=== PATIENT | female | born 2000 | race Caucasian/White ===

== ENCOUNTER 2021-10-26 09:30 | Observation (INO) ==
[2021-10-26 10:24] LABS: Basophils # (auto) 0.02 K/uL (0-0.2); Basophils % (auto) 0.1 %; Hematocrit (blood only) 43.7 % (37-47); Hemoglobin 14.6 g/dL (12.0-16.0); Immature Granulocytes % (auto) 0.4 %; Lymphocytes # (auto) 1.16 K/uL (1.2-3.4); Lymphocytes % (auto) 5.1 %; Mean Corpuscular Hemoglobin 31.4 pg (25-34); Mean Corpuscular Hgb Conc 33.4 g/dL (32-36); Mean Platelet Volume 10.5 fL (7.4-10.4); Monocytes # (auto) 1.69 K/uL (0.11-0.59); Monocytes % (auto) 7.5 %; Neutrophils % (auto) 86.9 %; Platelet Count 258 K/uL (130-400); RDW Coefficient of Variation 12.6 % (11.5-14.5); RDW Standard Deviation 42.9 fL (36.4-46.3); Red Blood Count 4.65 M/uL (4.2-5.4); White Blood Count 22.57 K/uL (4.8-10.8)
[2021-10-26 10:32] LABS: Albumin Globulin Ratio 1.7 (0.9-2); Albumin Level 4.8 gm/dl (3.4-5.0); BUN Creatinine Ratio 22.7 (10-20); Bilirubin,Total 0.9 mg/dl (0.2-1.0); Calcium 9.8 mg/dl (8.5-10.1); Creatinine Clr Calc Pharmacy 137.9 ml/min; Est GFR (African American) 146.4 ml/min; Est GFR (Non-African American) 126.3 ml/min; Globulin 2.8 gm/dl (2.5-4.0); Total Protein 7.6 gm/dl (6.0-8.3)
[2021-10-26] MEDS ORDERED: ONDANSETRON INJ 2 MG/ML 2 ML VIAL IV STA (10:57)
[2021-10-26] MEDS ORDERED: SODIUM CHLORIDE 0.9% 1000ML 1,000 ML IV SCH (10:58)
[2021-10-26 11:01] LABS: Appearance Urine Cloudy (Clear); Bacteria Urine Automated 1+ (Negative); Bilirubin Urine Negative (Negative); Blood Urine Negative (Negative); Color Urine Dark Yellow; Epithelial Cell Urine Auto >30 /lpf (0-5); Glucose Urine UA Negative (Negative); Ketones Urine 1+ (Negative); Leukocyte Esterase Urine Trace (Negative); Nitrite Urine Negative (Negative); Protein Urine Trace (Negative); RBC Urine Automated 0-4 /hpf (0-4); Specific Gravity Urine 1.034 (1.000-1.030); Urobilinogen Urine Negative (Negative)
--- NOTE | 2021-10-26 11:08 | Emergency Department Note ---
History of Present Illness General Chief complaint: Abdominal Pain Stated complaint: LOWR R ABD PAIN, THINKS APPENDICITIS Time Seen by Provider: 10/26/21 10:12 History of Present Illness Maximum Pain Intensity: 6 Patient is an otherwise healthy 21-year-old female who presents emergency de partment for evaluation of abdominal pain and vomiting. Symptoms started yesterday evening, around 1800. She states that she had just eaten some dinner, when she began to feel some crampy diffuse achy abdominal pain, accompanied by nausea. She started vomiting around 2100, threw up about 3 times last night. She subjectively felt feverish, but did not check her temperature with a thermometer. Pain persisted overnight. She woke up with discomfort around 0630 today and vomited again. The pain is now localized more to the right lower quadrant. She denies any urinary symptoms. No diarrhea. Last menstrual period was about 4 weeks ago, she is due any day now for her menses. She is sexually active using condoms, thinks is unlikely. She spoke with [facility] and they referred her to the ED for evaluation. She notes that she ate some pizza last couple of days, and questions whether she could have "food poisoning." Otherwise her boyfriend was eating foods similar to her in the prior days and he is not ill. Home Medications Medication Instructions Recorded Confirmed Type loratadine 10 mg disintegrating 10 mg PO DAILY PRN 10/26/21 10/26/21 History tablet (Allergy Relief (loratadine)) oxycodone-acetaminophen 5 mg-325 1 - 2 tab PO .q4-6h PRN #10 tab 10/26/21 Rx mg tablet (Percocet) Allergies Allergy/AdvReac Type Severity Reaction Status Date / Time pollen extracts Allergy Intermediate ITCHY Verified 10/26/21 14:58 EYES, SNEEZING, CONGESTION Past Med/Surg History Medical History Environmental and seasonal allergies Surgical History No history of previous surgery Social History Smoking Status: Never smoker Preferred Language: Maltese Current Living Situation Comment: [employer] student from [place], [place], lives in the dorm Feels Safe at Home: Yes Review of Systems A total of 10 systems reviewed and were otherwise negative Physical Exam Vital Signs Vital Signs - 24 hr 10/26/21 09:34 10/26/21 11:08 10/26/21 12:02 Temperature 36.7 C Temperature Source Temporal Artery Scan Pulse Rate 136 H Pulse Rate [Apical] Pulse Rate [Finger] 89 101 H Pulse Rhythm [Apical] Pulse Rhythm [Finger] Pulse Strength [Apical] Pulse Strength [Finger] Respiratory Rate 14 16 18 Respiratory Effort / Characteristics Respiratory Depth Respiratory Pattern Blood Pressure 118/66 Blood Pressure [Left Arm] 118/76 117/75 Blood Pressure Mean 83 Blood Pressure Mean [Left Arm] 90 89 Blood Pressure Position [Left Arm] Sitting Pulse Oximetry 97 100 100 Oxygen Delivery Method Room Air Room Air Room Air Sepsis Recent Fever Within 48 Hours No Sepsis New/Unexplained Change in Mental Status No Sepsis Action Taken by Nursing No Action Required 10/26/21 13:00 10/26/21 14:40 10/26/21 15:22 Temperature Temperature Source Pulse Rate Pulse Rate [Apical] Pulse Rate [Finger] 85 80 79 Pulse Rhythm [Apical] Pulse Rhythm [Finger] Regular Regular Pulse Strength [Apical] Pulse Strength [Finger] Normal Respiratory Rate 16 16 17 Respiratory Effort / Characteristics Non-Labored Non-Labored Spontaneous Respiratory Depth Normal Normal Respiratory Pattern Blood Pressure Blood Pressure [Left Arm] 121/76 112/66 Blood Pressure Mean Blood Pressure Mean [Left Arm] 91 81 Blood Pressure Position [Left Arm] Lying Pulse Oximetry 99 100 100 Oxygen Delivery Method Room Air Room Air Room Air Sepsis Recent Fever Within 48 Hours Sepsis New/Unexplained Change in Mental Status Sepsis Action Taken by Nursing 10/26/21 15:40 Temperature 36.9 C Temperature Source Oral Pulse Rate Pulse Rate [Apical] 96 H Pulse Rate [Finger] Pulse Rhythm [Apical] Regular Pulse Rhythm [Finger] Pulse Strength [Apical] Normal Pulse Strength [Finger] Respiratory Rate 18 Respiratory Effort / Characteristics Non-Labored Spontaneous Normal for Patient Respiratory Depth Normal Respiratory Pattern Regular Blood Pressure Blood Pressure [Left Arm] 120/74 Blood Pressure Mean Blood Pressure Mean [Left Arm] 89 Blood Pressure Position [Left Arm] Semi-fowlers Pulse Oximetry 100 Oxygen Delivery Method Room Air Sepsis Recent Fever Within 48 Hours Sepsis New/Unexplained Change in Mental Status Sepsis Action Taken by Nursing CONSTITUTIONAL: Patient is a well-appearing 21-year-old female who is awake and alert and laying on the gurney in a semiupright position. She is nontoxic in appearance and afebrile. EYES: Pupils equal, round, reactive to light and accommodation. EOMs intact without nystagmus. Sclera are anicteric. ENT: Tympanic membranes intact, with normal landmarks. External canals are clear. Oral and nasopharynx are clear. Mucous membranes are moist, no lesions, tongue and gums appear normal. CARDIOVASCULAR: Regular rate and rhythm. Peripheral pulses easily palpable. RESPIRATORY: Breath sounds equal and clear to auscultation. ABDOMEN: Bowel sounds are present. Abdomen is soft, scaphoid, tender to percussion over the right lower quadrant and tender to deep palpation in the right lower quadrant with voluntary guarding. INTEGUMENTARY: No lesions or rash, normal skin turgor. LYMPH: No lymphadenopathy. Course Course Patient was seen and assessed as above. Old records are reviewed. Nursing staff had implemented critical pathways prior to my assessment of the patient. She has been made NPO. IV lock was initiated. CBC, CMP, lipase, urinalysis and urine test were collected. Laboratory studies note an elevated white count at 22,500 with left shift and bandemia. Electrolytes and renal functions are normal. Transaminases are not elevated. Lipase minimally elevated at 129. Urine microscopy notes 1+ ketones, trace leukocyte esterase and 10-30 WBCs with Greater Than 30 Epithelial Cells Which Is a Contaminated Sample. 1+ Bacteria Noted. Urine Test Is Negative. After the patient was assessed, I ordered her some IV fluids and some IV Zofran. She was offered medication for discomfort but declined. CT scan of the abdomen and pelvis with IV contrast was ordered. CT scan findings are consistent with acute appendicitis. No free air or abscess. Appendix is retrocecal. There is also a 2.3 cm right adnexal lesion favoring a corpus luteal cyst. CT scan findings were reviewed with the patient. Surgical consult was placed. Patient was reviewed with Julián Crowe PA-C with Dr. Call. Patient is aware that surgical team will be coming to evaluate her. She has been n.p.o. since 1730 last evening. Plan is for surgical intervention later today. Administered Medications Discontinued Medications Sodium Chloride (Nss 1000ml) 1,000 mls @ 999 mls/hr IV .Q1H1M LETY Stop: 10/26/21 11:58 Last Infusion: 10/26/21 12:02 Dose: 0 mls/hr Documented by: [id number] Admin: 10/26/21 11:07 Dose: 999 mls/hr Documented by: [id number] Sodium Chloride (Nss 1000ml) 1,000 mls @ 250 mls/hr IV .Q4H LETY Stop: 11/25/21 10:59 Last Admin: 10/26/21 12:02 Dose: 250 mls/hr Documented by: [id number] Cefoxitin Sodium (Mefoxin) 2,000 mg in 60 mls @ 100 mls/hr IV NOW STA Stop: 10/26/21 13:04 Last Infusion: 10/26/21 13:19 Dose: 0 mls/hr Documented by: [id number] Admin: 10/26/21 12:49 Dose: 100 mls/hr Documented by: [id number] Ioversol (Optiray 320 100ml) 95 ml IV ONCE ONE Stop: 10/26/21 11:42 Last Admin: 10/26/21 11:44 Dose: 95 ml Documented by: [id number] Ondansetron HCl (Ondansetron Inj 2 Mg/Ml 2 Ml Vial) 4 mg IV NOW STA Stop: 10/26/21 10:58 Last Admin: 10/26/21 11:05 Dose: 4 mg Documented by: [id number] Scopolamine (Scopolamine 1 Mg Tdsy) 1 mg TD ONE ONE Stop: 10/26/21 16:01 Last Admin: 10/26/21 16:03 Dose: 1 mg Documented by: [id number] Medical Decision Making Differential Diagnosis Differential diagnoses entertained included UTI, pyelonephritis, kidney stone, , ectopic , ovarian cyst, ovarian torsion, appendicitis, mesenteric adenitis, among others. Medical Records Attestation: I reviewed the patient's medical records. Home Medications Current Medication List: was personally reviewed by me Laboratory Data Attestation: I reviewed the patient's lab results. Result diagrams: 10/26/21 09:50 10/26/21 09:50 Lab Results 10/26/21 10/26/21 10/26/21 Range/Units 09:50 09:50 09:50 WBC 22.57 H (4.8-10.8) K/uL RBC 4.65 (4.2-5.4) M/uL Hgb 14.6 (12.0-16.0) g/dL Hct 43.7 (37-47) % MCV 94.0 (80-100) fL MCH 31.4 (25-34) pg MCHC 33.4 (32-36) g/dL RDW Std Deviation 42.9 (36.4-46.3) fL RDW Coeff of Stewart 12.6 (11.5-14.5) % Plt Count 258 (130-400) K/uL MPV 10.5 H (7.4-10.4) fL Immature Gran % (Auto) 0.4 % Neut % (Auto) 86.9 % Lymph % (Auto) 5.1 % [place] % (Auto) 7.5 % Eos % (Auto) 0.0 % Baso % (Auto) 0.1 % Neut # (Auto) 19.60 H (1.4-6.5) K/uL Lymph # (Auto) 1.16 L (1.2-3.4) K/uL [place] # (Auto) 1.69 H (0.11-0.59) K/uL Eos # (Auto) 0.00 (0-0.5) K/uL Baso # (Auto) 0.02 (0-0.2) K/uL Immature Gran # (Auto) 0.10 H (0.00-0.02) K/uL Sodium 136 (136-145) mmol/L Potassium 4.0 (3.5-5.1) mmol/L Chloride 103 (98-107) mmol/L Carbon Dioxide 25 (21-32) mmol/L Anion Gap 8 (3-11) BUN 15 (6-23) mg/dl Creatinine 0.66 (0.6-1.2) mg/dl Est Cr Clr Drug Dosing 137.9 ml/min Est GFR ( Amer) 146.4 ml/min Est GFR (Non-Af Amer) 126.3 ml/min BUN/Creatinine Ratio 22.7 H (10-20) Glucose 116 H (70-99(Fasting)) mg/dl Calcium 9.8 (8.5-10.1) mg/dl Total Bilirubin 0.9 (0.2-1.0) mg/dl AST 16 (13-39) U/L ALT 11 (7-52) U/L Alkaline Phosphatase 65 (34-104) U/L Total Protein 7.6 (6.0-8.3) gm/dl Albumin 4.8 (3.4-5.0) gm/dl Globulin 2.8 (2.5-4.0) gm/dl Albumin/Globulin Ratio 1.7 (0.9-2) Lipase 129 H (11-82) U/L Urine Color Dark Yellow Urine Appearance Cloudy A (Clear) Urine pH 6.0 (4.5-7.5) Ur Specific [place] 1.034 H (1.000-1.030) Urine Protein Trace H (Negative) Urine Glucose (UA) Negative (Negative) Urine Ketones 1+ H (Negative) Urine Blood Negative (Negative) Urine Nitrite Negative (Negative) Urine Bilirubin Negative (Negative) Urine Urobilinogen Negative (Negative) Ur Leukocyte Esterase Trace H (Negative) Urine WBC (Auto) 10-30 H (0-5) /hpf Urine RBC (Auto) 0-4 (0-4) /hpf U Hyaline Cast (Auto) 10-30 H (0-5) /lpf U Epithel Cells (Auto) >30 H (0-5) /lpf Urine Bacteria (Auto) 1+ H (Negative) Urine Test (Negative) POC Ur Test SARS-CoV-2, RNA, NAAT (NEGATIVE) 10/26/21 10/26/21 10/26/21 Range/Units 09:50 12:45 Unknown WBC (4.8-10.8) K/uL RBC (4.2-5.4) M/uL Hgb (12.0-16.0) g/dL Hct (37-47) % MCV (80-100) fL MCH (25-34) pg MCHC (32-36) g/dL RDW Std Deviation (36.4-46.3) fL RDW Coeff of Stewart (11.5-14.5) % Plt Count (130-400) K/uL MPV (7.4-10.4) fL Immature Gran % (Auto) % Neut % (Auto) % Lymph % (Auto) % [place] % (Auto) % Eos % (Auto) % Baso % (Auto) % Neut # (Auto) (1.4-6.5) K/uL Lymph # (Auto) (1.2-3.4) K/uL [place] # (Auto) (0.11-0.59) K/uL Eos # (Auto) (0-0.5) K/uL Baso # (Auto) (0-0.2) K/uL Immature Gran # (Auto) (0.00-0.02) K/uL Sodium (136-145) mmol/L Potassium (3.5-5.1) mmol/L Chloride (98-107) mmol/L Carbon Dioxide (21-32) mmol/L Anion Gap (3-11) BUN (6-23) mg/dl Creatinine (0.6-1.2) mg/dl Est Cr Clr Drug Dosing ml/min Est GFR ( Amer) ml/min Est GFR (Non-Af Amer) ml/min BUN/Creatinine Ratio (10-20) Glucose (70-99(Fasting)) mg/dl Calcium (8.5-10.1) mg/dl Total Bilirubin (0.2-1.0) mg/dl AST (13-39) U/L ALT (7-52) U/L Alkaline Phosphatase (34-104) U/L Total Protein (6.0-8.3) gm/dl Albumin (3.4-5.0) gm/dl Globulin (2.5-4.0) gm/dl Albumin/Globulin Ratio (0.9-2) Lipase (11-82) U/L Urine Color Urine Appearance (Clear) Urine pH (4.5-7.5) Ur Specific [place] (1.000-1.030) Urine Protein (Negative) Urine Glucose (UA) (Negative) Urine Ketones (Negative) Urine Blood (Negative) Urine Nitrite (Negative) Urine Bilirubin (Negative) Urine Urobilinogen (Negative) Ur Leukocyte Esterase (Negative) Urine WBC (Auto) (0-5) /hpf Urine RBC (Auto) (0-4) /hpf U Hyaline Cast (Auto) (0-5) /lpf U Epithel Cells (Auto) (0-5) /lpf Urine Bacteria (Auto) (Negative) Urine Test Negative (Negative) POC Ur Test Cancelled SARS-CoV-2, RNA, NAAT NEGATIVE (NEGATIVE) Imaging Data Attestation: I personally reviewed and interpreted this imaging study as follows: Radiologist's Impression: Abdomen/Pelvis CT 10/26/21 10:57 CT OF THE ABDOMEN AND PELVIS WITH CONTRAST CLINICAL HISTORY: Right lower quadrant abdominal pain and vomiting COMPARISON STUDY: None. TECHNIQUE: Following IV administration of 95 mL of Optiray, axial images of the abdomen and pelvis were obtained from the lung bases to the proximal femurs. Images were reviewed in the axial, sagittal, and coronal planes. IV contrast was administered without complication. Automated exposure control was utilized for the study. A dose lowering technique was utilized adhering to the principles of ALARA. CT DOSE: 308.06 mGy.cm FINDINGS: Lung bases are unremarkable. No pneumatosis, free air or portal venous gas is present. Liver, spleen, adrenal glands, kidneys and pancreas are normal. There is no biliary or pancreatic ductal dilatation. No peripancreatic or pericholecystic infiltration is present. There is no hydronephrosis. Nephrograms are symmetric the caliber and wall thickness of small and large bowel are normal. The appendix is dilated, measuring 1 cm in caliber. The wall is thickened. There is mild periappendiceal stranding. Appendix is retrocecal in location. No free air or abscess present. A small amount of fluid within the pelvis is noted. 2.3 cm rim-enhancing right adnexal lesion favors a corpus luteal cyst. Ovaries are not significantly enlarged. Major vasculature is patent. IMPRESSION: 1. Findings consistent with acute appendicitis. No free air or abscess. Retrocecal appendix. 2. Small amount of fluid within the pelvis. 3. 2.3 cm rim-enhancing right adnexal lesion suggestive of a corpus luteal cyst. ACT 112: Negative or not required by law. Electronically signed by: Abran Vaughan M.D. 10/26/2021 11:55 AM MDM Narrative See ED course. Impression & Plan Acute appendicitis, Right ovarian cyst Discharge Plan Visit Data Chief Complaint: Abdominal Pain Stated Complaint: LOWR R ABD PAIN, THINKS APPENDICITIS ED Provider: Oli Parra ED Midlevel Provider: Naomy Unger Discharge Problem: Acute appendicitis, Right ovarian cyst Patient Disposition: Home - Self-Care Condition: Good Discharge Instructions Akash/Other Patient Handouts: Appendectomy Activity Restrictions/Additional Instructions: SPECIAL CARE INSTRUCTIONS: * May use ibuprofen for pain as tolerated. If you do not require the narcotic Percocet for pain you may purchase plain Tylenol over the counter. Do not take Percocet and Tylenol concurrently as they both contain Acetaminophen. You should not exceed >3grams of Acetaminophen within a 24 hour time period. * Expect some swelling and bruising. * Wait at least 3 days prior to driving. No driving while taking any narcotics for pain. * You may resume a regular diet as you tolerate * No heavy lifting greater than 10 pounds for about 2 weeks and when cleared by the surgeon * You may shower starting 10/27/21; no soaking in tubs/pools. Call your doctor if: * Temperature above 101 degrees * Pain not relieved by pain medicine ordered * There is increased drainage or redness from any incision * Vomiting * You have any unanswered questions or concerns [phone]. FOLLOW UP VISIT: If not already scheduled, please call the office for a follow-up visit. OFFICE PHONE NUMBER: Dr. Bose's Office Interventions: ED Discharge Assessment Last Done: 10/26/21 15:28 Forms Stand Alone Forms: [facility], [facility] Emergency Department, Important Visit Information Prescriptions Prescriptions: New oxycodone-acetaminophen [Percocet] 5-325 mg tablet 1 - 2 tab PO .q4-6h PRN (Reason: pain, for initial therapy, max 6 tabs per day) Qty: 10 RF: 0 Continued loratadine [Allergy Relief (loratadine)] 10 mg Tablet,Disintegrating 10 mg PO DAILY PRN (Reason: Congestion) RF: 0 Referrals Referrals: Colby Call DO, FACS [Physician] - (Please call to schedule follow up in clinic within 2 weeks) PCP,NO [Primary Care Provider] - Discharge Problem: Acute appendicitis Qualifiers: Acute appendicitis type: with localized peritonitis Appendicitis gangrene prese nce: without gangrene Appendicitis perforation presence: without perforation Appendicitis abscess presence: without abscess Qualified Code(s): K35.30 - Acute appendicitis with localized peritonitis, without perforation or gangrene
[2021-10-26 11:22] LABS: Pregnancy Test, Urine Negative (Negative)
[2021-10-26] MEDS ORDERED: OPTIRAY 320 100ml IV ONE (11:41)
--- NOTE | 2021-10-26 11:56 | CT Scan Report ---
CT OF THE ABDOMEN AND PELVIS WITH CONTRAST CLINICAL HISTORY: Right lower quadrant abdominal pain and vomiting COMPARISON STUDY: None. TECHNIQUE: Following IV administration of 95 mL of Optiray, axial images of the abdomen and pelvis we re obtained from the lung bases to the proximal femurs. Images were reviewed in the axial, sagittal, and coronal planes. IV contrast was administered without complication. Automated exposure control wa s utilized for the study. A dose lowering technique was utilized adhering to the principles of ALARA . CT DOSE: 308.06 mGy.cm FINDINGS: Lung bases are unremarkable. No pneumatosis, free air or portal venous gas is present. Live r, spleen, adrenal glands, kidneys and pancreas are normal. There is no biliary or pancreatic ductal dilatation. No peripancreatic or pericholecystic infiltration is present. There is no hydronephrosis. Nephrograms are symmetric the caliber and wall thickness of small and large bowel are normal. The ap pendix is dilated, measuring 1 cm in caliber. The wall is thickened. There is mild periappendiceal st randing. Appendix is retrocecal in location. No free air or abscess present. A small amount of fluid within the pelvis is noted. 2.3 cm rim-enhancing right adnexal lesion favors a corpus luteal cyst. Ov dinesh are not significantly enlarged. Major vasculature is patent. IMPRESSION: 1. Findings consistent with acute appendicitis. No free air or abscess. Retrocecal appendix. 2. Small amount of fluid within the pelvis. 3. 2.3 cm rim-enhancing right adnexal lesion suggestive of a corpus luteal cyst. ACT 112: Negative or not required by law. Electronically signed by: Abran Vaughan M.D. 10/26/2021 11:55 AM
[2021-10-26] MEDS: SODIUM CHLORIDE 0.9% 1000ML 1,000 ML IV SCH ×2 (12:02→21:03)
[2021-10-26] MEDS ORDERED: cefOXitin 2,000 MG/60 ML BAG IV STA (12:29)
--- NOTE | 2021-10-26 12:35 | History & Physical Report ---
Date of Service October 26, 2021 Assessment & Plan (1) Acute appendicitis: Plan: Will plan for laparoscopic appendectomy this afternoon. Preop mefoxin. COVID screen is pending. History of Present Illness Primary Care Provider: NO PCP 21 y/o female with generalized abdominal pain began around 6 PM yesterday and localized to RLQ overnight. Had chills overnight, vomited when she tried to drink water this morning. Allergies Allergy/AdvReac Type Severity Reaction Status Date / Time No Known Allergies Allergy Verified 10/26/21 10:57 Past Med/Surg History Medical History Environmental and seasonal allergies Surgical History No history of previous surgery Social History Smoking Status: Never smoker Preferred Language: Scottish Current Living Situation Comment: [employer] student from [place], [place], lives in the dorm Feels Safe at Home: Yes Review of Systems Constitutional: + chills; no fever Gastrointestinal: + abdominal pain, + nausea and + vomiting Physical Exam Constitutional: WD/WN, vitals as above Respiratory: normal respiratory effort, lungs clear to auscultation Cardiovascular: RRR, no murmur, no edema Gastrointestinal (Abdomen): Inspection/Auscultation: abdomen not distended Percussion/Palpation: + abdomen tender (localized to RLQ) and abdomen soft; no guarding Results & Data Results & Data ([facility]) Vital Signs (Past 12 Hours) Vital Signs Temp Pulse Pulse Resp BP BP Pulse Ox 10/26/21 12:02 101 H 18 117/75 100 10/26/21 11:08 89 16 118/76 100 10/26/21 09:34 36.7 C 136 H 14 118/66 97 Supervising Physician Co-Signing Physician Notes Patient seen and examined, labs and imaging reviewed, agree with above. 21-year-old female presented with abdominal pain that migrated to the right lower quadrant. On exam she is afebrile stable vitals, her abdomen is soft, tender to palpation in the right lower quadrant with localized guarding. WBC 22.5, CT personally reviewed and interpreted and agree with the assessment of a nonperforated appendicitis and a small ovarian cyst. Plan for laparoscopic appendectomy The risk the procedure were discussed to include but not limited to bleeding, infection, normal appendix, damage surrounding structures, need for future more extensive surgery, conversion open, abscess, and the risk of anesthesia PG Care Time/CCT Total # of Minutes Spent Total Time Spent with Patient: Total time spent is greater than 50% in coordination of care (as documented) at patient's floor/unit and/or counseling patient: Coding Level of Care Code None Diagnoses Acute appendicitis K35.30 Acute appendicitis type: with localized peritonitis Appendicitis abscess presence: without abscess Appendicitis gangrene presence: without gangrene Appendicitis perforation presence: without perforation (1) Acute appendicitis Acute appendicitis type: with localized peritonitis Appendicitis abscess presence: without abscess Appendicitis gangrene presence: without gangrene Appendicitis perforation presence: without perforation Qualified Code(s): K35.30 - Acute appendicitis with localized peritonitis, without perforation or gangrene
--- NOTE | 2021-10-26 14:40 | History & Physical Bridge Note ---
Date of Service October 26, 2021 History & Physical Bridge Note I have examined the patient, reviewed the History & Physical and in the interval since the performance of the History & Physical I have noted the following changes of clinical significance: no changes noted
[2021-10-26] MEDS ORDERED: MIDAZOLAM HCL 1 MG/ML 2ML VIAL ONE (15:15)
[2021-10-26] MEDS ORDERED: fentaNYL citrate 100 MCG/2 ML VIAL ONE ×2 (15:15→18:10)
[2021-10-26] MEDS ORDERED: ePHEDrine sulfate 50 MG/ML AMP IV PRN (15:39)
[2021-10-26] MEDS ORDERED: PHENYLEPHRINE 100MCG/ML 5ML SYR IV PRN (15:39)
[2021-10-26] MEDS ORDERED: MEPERIDINE HCL 25 MG/ML CARP/VIAL IV PRN (15:39)
[2021-10-26] MEDS ORDERED: fentaNYL citrate 100 MCG/2 ML VIAL IV PRN (15:39)
[2021-10-26] MEDS ORDERED: LABETALOL HCL IV 5 MG/ML 20ML IV PRN (15:39)
[2021-10-26] MEDS ORDERED: ATROPINE SULFATE 0.1 MG/ML 10ML SYR IV PRN (15:39)
[2021-10-26] MEDS ORDERED: HYDROmorphone INJ 1 MG/ML SYRINGE IV PRN (15:39)
[2021-10-26] MEDS ORDERED: ONDANSETRON INJ 2 MG/ML 2 ML VIAL IV PRN ×2 (15:39→20:41)
--- NOTE | 2021-10-26 15:40 | Anesthesiology Consultation ---
Date of Service October 26, 2021 Assessment & Plan Chart Review Chart Review: Acceptable Risk for Surgery and Patient NOT seen in Pre Admission Testing Consults Requested none History Surgery Operation Date: 10/26/21 11:30 Proposed Procedures p Laparoscopic Appendectomy - Colby Call DO, RUSS Height/Weight Height: 5 ft 9 in Weight: 64.8 kg Allergies Allergy/AdvReac Type Severity Reaction Status Date / Time pollen extracts Allergy Intermediate ITCHY Verified 10/26/21 14:58 EYES, SNEEZING, CONGESTION Medications Home Medications Medication Instructions Recorded Confirmed Last Taken loratadine 10 mg disintegrating 10 mg PO DAILY PRN 10/26/21 10/26/21 Unknown tablet (Allergy Relief (loratadine)) oxycodone-acetaminophen 5 mg-325 1 - 2 tab PO .q4-6h PRN #10 tab 10/26/21 Unknown mg tablet (Percocet) Active Medications Generic Name Dose Route Start Last Admin Trade Name Freq PRN Reason Stop Dose Admin Sodium Chloride 1,000 mls @ 250 mls/hr 10/26/21 11:00 10/26/21 12:02 Nss 1000ml IV 11/25/21 10:59 250 mls/hr .Q4H LETY Administration NPO Date Last Intake of Fluids: 10/26/21 Time Last Intake of Fluids: 04:30 Date Last Intake of Solids: 10/25/21 Time Last Intake of Solids: 17:30 Past Medical History Medical History Environmental and seasonal allergies Past Surgical History Surgical History No history of previous surgery Social History Smoking Status: Never smoker Physical Exam Vital Signs Last Vital Signs Temp 36.7 C 10/26/21 09:34 Pulse 79 10/26/21 15:22 Resp 17 10/26/21 15:22 BP 112/66 10/26/21 15:22 Pulse Ox 100 10/26/21 15:22 Testing Laboratory Results 10/26/21 09:50 10/26/21 09:50 Urine Color Dark Yellow 10/26/21 09:50 Urine Appearance Cloudy (Clear) A 10/26/21 09:50 Urine pH 6.0 (4.5-7.5) 10/26/21 09:50 Ur Specific [place] 1.034 (1.000-1.030) H 10/26/21 09:50 Urine Protein Trace (Negative) H 10/26/21 09:50 Urine Glucose (UA) Negative (Negative) 10/26/21 09:50 Urine Ketones 1+ (Negative) H 10/26/21 09:50 Urine Nitrite Negative (Negative) 10/26/21 09:50 Ur Leukocyte Esterase Trace (Negative) H 10/26/21 09:50 Urine WBC (Auto) 10-30 /hpf (0-5) H 10/26/21 09:50 Urine RBC (Auto) 0-4 /hpf (0-4) 10/26/21 09:50 U Hyaline Cast (Auto) 10-30 /lpf (0-5) H 10/26/21 09:50 U Epithel Cells (Auto) >30 /lpf (0-5) H 10/26/21 09:50 Urine Bacteria (Auto) 1+ (Negative) H 10/26/21 09:50 Urine Test Negative (Negative) 10/26/21 Unknown 10/26/21 10/26/21 Unknown 09:50 Urine Test Negative POC Ur Test Cancelled
[2021-10-26] MEDS ORDERED: SCOPOLAMINE 1 MG TDSY TD ONE ×2 (16:00→16:02)
[2021-10-26] MEDS ORDERED: CHECK SCOPOLAMINE PATCH PLACEMENT SCH (16:00)
[2021-10-26] MEDS ORDERED: LACTATED RINGER'S 1,000 ML IV SCH ×2 (16:00)
[2021-10-26] MEDS ORDERED: BUPIVACAINE 0.5 % 5 MG/1 ML MPF 30ML VIAL ONE (16:00)
[2021-10-26] MEDS ORDERED: PROPOFOL IV EMULSION 10 MG/ML 20 ML VIAL IV ONE (17:52)
[2021-10-26] MEDS ORDERED: ONDANSETRON INJ 2 MG/ML 2 ML VIAL ONE (17:53)
[2021-10-26] MEDS ORDERED: LIDOCAINE 2% 2 ML VIAL/AMP(20MG/ML) INFIL ONE (17:53)
[2021-10-26] MEDS ORDERED: DEXAMETHASONE SOD INJ 4 MG/ML VIAL ONE ×2 (17:53)
[2021-10-26] MEDS ORDERED: ROCURONIUM BROMIDE 10 MG/ML 5 ML VIAL IV ONE (17:53)
--- NOTE | 2021-10-26 18:43 | Operative Report ---
PG Post Operative Report Pre & Post Diagnosis Operation Date: 10/26/21 11:30 Pre-Op Diagnosis: Acute appendicitis Post-Op Diagnosis: Acute suppurative, nonperforated appendicitis I identified the patient and participated in the time-out.: Yes Procedure Operation Date: 10/26/21 11:30 Actual Procedures p Laparoscopic Appendectomy(Not Applicable) - Colby Call DO, FACS Surgeon Colby Call DO, FACS Road Marker none Estimated Blood Loss 5 Findings Consistent with Post-Op Diagnosis Acute, suppurative, nonperforated appendicitis. Specimens Appendix Anesthesia Type General Complications none Disposition Accompanied Patient To Recovery: No Disposition: Recovery Room Indications 21-year-old female presented with signs and symptoms of acute appendicitis, confirmed by CT scan. Plan for laparoscopic appendectomy. The risks of the procedure were discussed, all questions were answered, and the patient agreed to proceed with surgery as planned. Description of Procedure The patient was properly identified, consented, and taken to the operating room where she was placed in the supine position. General endotracheal anesthesia was induced. SCDs and a safety belt were placed. Preoperative antibiotics were administered. A Gonzalez catheter was not placed. The patient's abdomen was prepped and draped in the standard sterile fashion. Surgical timeout was performed and all parties were in agreement that this was the correct patient and procedure to be performed and we continued as planned. A curvilinear infraumbilical incision was made with electrocautery and deepened down to the fascia with blunt dissection. The base of the umbilicus was grasped with a Jame and elevated towards the ceiling. An incision was made in the midline fascia with a knife and entry into the peritoneum was confirmed. Stay suture of 0 Vicryl was placed and a Taveras trocar was inserted. The abdomen was insufflated with carbon dioxide which the patient tolerated without incident. The laparoscope was inserted and no damage from initial trocar placement was noted, no gross abnormalities were noted within the 4 quadrants the abdomen. 5 mm ports were then placed in the left lower quadrant with care not to damage the epigastric vessels, and in the suprapubic midline with care not to damage the bladder. The patient was placed in Trendelenburg position and rotated towards the left. The small bowel was swept away from the right lower quadrant. The cecum was grasped with an atraumatic grasper exposing the appendix. The appendix was moderately inflamed with some fibrinous exudate but there was no evidence of perforation. There was some reactive fluid in the pelvis. A window was created between the base of the appendix and the mesoappendix. A virk loaded endoscopic stapler was then used to divide the appendix at its base. The harmonic scalpel was then used to divide the mesoappendix. Hemostasis was good. The appendix was placed in an Endo Catch bag and removed through the umbilical port site. The right lower quadrant and pelvis was irrigated and hemostasis was found to be good. 5 mm trochars were removed under direct visualization and the abdomen was allowed to collapse. The umbilical port site fascia was closed with 0 Vicryl suture. The wound was irrigated, and the skin of all ports was closed with 4-0 Monocryl subcuticular sutures. Dermabond was placed over the wounds. The patient was extubated in the operating room and taken to the PACU where she recovered without apparent incident. All sponge, instrument and needle counts were correct at the conclusion of the procedure. The patient tolerated the procedure well. I attest to the content of the Intraoperative Record and any orders documented therein. Any exceptions are noted below.
[2021-10-26] MEDS ORDERED: MEPERIDINE HCL 25 MG/ML CARP/VIAL ONE (18:49)
--- NOTE | 2021-10-26 19:06 | Anesthesiology Progress Note ---
Date of Service October 26, 2021 Anesthesia Post Procedure Vital Signs Vital Signs: Temp Pulse Pulse Pulse Resp BP BP 10/26/21 15:40 36.9 C 96 H 18 120/74 10/26/21 15:22 79 17 112/66 10/26/21 14:40 80 16 10/26/21 13:00 85 16 121/76 10/26/21 12:02 101 H 18 117/75 10/26/21 11:08 89 16 118/76 10/26/21 09:34 36.7 C 136 H 14 118/66 Pulse Ox 10/26/21 15:40 100 10/26/21 15:22 100 10/26/21 14:40 100 10/26/21 13:00 99 10/26/21 12:02 100 10/26/21 11:08 100 10/26/21 09:34 97 Pain Intensity Abdomen: Pain Intensity: 2 Transfer of Care Handoff Completed per policy Notes Mental Status: alert / awake / arousable Patient Amnestic to Procedure: Yes Nausea / Vomiting: adequately controlled Pain: adequately controlled Airway Patency, RR, SpO2: stable & adequate BP & HR: stable & adequate Hydration State: stable & adequate Anesthetic Complications: no major complications apparent and Pt Satisfied with anesthetic care
[2021-10-26] MEDS ORDERED: FAMOTIDINE 20 MG in SYRINGE 3 ML IV ONE (19:15)
[2021-10-26] MEDS ORDERED: ACETAMINOPHEN 1,000 MG/100 ML VIAL IV PRN (20:41)
[2021-10-26] MEDS ORDERED: MoRPHine SULFATE 4 MG/ML 1 ML CARP\\VIAL IV PRN (20:41)
[2021-10-26] MEDS: LACTATED RINGER'S 1,000 ML IV SCH (21:00)
[2021-10-26] MEDS: CHECK SCOPOLAMINE PATCH PLACEMENT SCH (22:29)
[2021-10-27] MEDS: cefOXitin 2,000 MG in DEXTROSE 5% 50 ML IV SCH ×2 (01:00→05:45)
[2021-10-27] MEDS: CHECK SCOPOLAMINE PATCH PLACEMENT SCH ×2 (01:01→08:05)
[2021-10-27] MEDS: LACTATED RINGER'S 1,000 ML IV SCH (05:44)
[2021-10-27 07:07] LABS: BUN Creatinine Ratio 11.4 (10-20); Calcium 9.3 mg/dl (8.5-10.1); Creatinine Clr Calc Pharmacy 130.1 ml/min; Est GFR (African American) 143.5 ml/min; Est GFR (Non-African American) 123.9 ml/min; Potassium 4.1 mmol/L (3.5-5.1)
[2021-10-27] MEDS ORDERED: oxyCODONE HCL IR 5 MG TAB (IMMEDIATE RELEASE) PO PRN (07:28)
[2021-10-27 07:31] LABS: Basophils # (auto) 0.01 K/uL (0-0.2); Basophils % (auto) 0.1 %; Hematocrit (blood only) 40.8 % (37-47); Hemoglobin 13.5 g/dL (12.0-16.0); Immature Granulocytes # (auto) 0.04 K/uL (0.00-0.02); Immature Granulocytes % (auto) 0.3 %; Lymphocytes % (auto) 7.1 %; Mean Corpuscular Hemoglobin 31.6 pg (25-34); Mean Corpuscular Hgb Conc 33.1 g/dL (32-36); Mean Corpuscular Volume 95.6 fL (80-100); Mean Platelet Volume 10.3 fL (7.4-10.4); Monocytes # (auto) 0.73 K/uL (0.11-0.59); Monocytes % (auto) 5.8 %; Neutrophils # (auto) 10.99 K/uL (1.4-6.5); Neutrophils % (auto) 86.7 %; Platelet Count 222 K/uL (130-400); RDW Coefficient of Variation 12.8 % (11.5-14.5); RDW Standard Deviation 44.3 fL (36.4-46.3); Red Blood Count 4.27 M/uL (4.2-5.4); White Blood Count 12.67 K/uL (4.8-10.8)
--- NOTE | 2021-10-27 07:55 | Surgery Progress Note ---
Date of Service October 27, 2021 Assessment & Plan (1) Acute appendicitis: Plan: POD 1 lap appy WBC 12 ok for discharge if tolerates breakfast Admission and Anticipated Discharge Date Admission Date: October 26, 2021 Supervising Physician Co-Signing Physician Notes Patient discussed with MARTELL Lopez, labs reviewed, agree with above. POD #1 laparoscopic appendectomy, doing well. WBC down to 12. Tolerated diet. Discharged home, follow-up in 2 weeks. Wound care instructions, activity restrictions, and return precautions given, call with questions or concerns Subjective no c/o, pain when getting out of bed Physical Exam Constitutional: WD/WN, vitals as above Gastrointestinal (Abdomen): Inspection/Auscultation: + abdominal surgical incision (clean, dry) Results & Data ([facility]) Vital Signs (Past 12 Hours) Vital Signs Temp Pulse Pulse Resp BP Pulse Ox 10/27/21 07:47 36.9 C 72 18 118/77 98 10/27/21 04:00 36.8 C 89 18 110/65 97 10/26/21 23:37 36.8 C 87 18 137/84 98 10/26/21 22:49 37 C 88 14 122/75 98 10/26/21 21:35 37.5 C 89 18 117/70 96 10/26/21 21:06 37.1 C 92 H 18 109/63 100 10/26/21 20:35 37.7 C H 98 H 14 120/75 95 10/26/21 20:25 92 H 20 117/66 95 10/26/21 20:15 37.1 C 91 H 18 118/72 95 10/26/21 20:05 80 19 116/71 94 10/26/21 19:55 99 H 19 122/72 97 PG Care Time/CCT Total # of Minutes Spent Total Time Spent with Patient: Total time spent is greater than 50% in coordination of care (as documented) at patient's floor/unit and/or counseling patient: Coding Level of Care Code None Diagnoses Acute appendicitis K35.30 Acute appendicitis type: with localized peritonitis Appendicitis abscess presence: without abscess Appendicitis gangrene presence: without gangrene Appendicitis perforation presence: without perforation (1) Acute appendicitis Acute appendicitis type: with localized peritonitis Appendicitis abscess presence: without abscess Appendicitis gangrene presence: without gangrene Appendicitis perforation presence: without perforation Qualified Code(s): K35.30 - Acute appendicitis with localized peritonitis, without perforation or gangrene
--- NOTE | 2021-11-01 10:47 | Discharge Summary ---
Date of Service October 27, 2021 Admission HPI Per Admitting Provider 21 y/o female with generalized abdominal pain began around 6 PM yesterday and localized to RLQ overnight. Had chills overnight, vomited when she tried to drink water this morning. Principal Diagnosis acute appendicitis Discharge Exam awake/alert Gastrointestinal (Abdomen) Inspection/Auscultation: + abdominal surgical incision (c/d/i ); abdomen not distended Percussion/Palpation: + abdomen tender (expected fantasma incisional discomfort ) and abdomen soft Discharge Data Allergies Allergy/AdvReac Type Severity Reaction Status Date / Time pollen extracts Allergy Intermediate ITCHY Verified 10/26/21 14:58 EYES, SNEEZING, CONGESTION Procedures Performed Operation Date: 10/26/21 11:30 Actual Procedures p Laparoscopic Appendectomy(Not Applicable) - Colby Call DO, FACS Ordered Studies 10/26/21 10:57 CT abd pelvis IV con only Stat Hospital Course (1) Acute appendicitis: This is a 21yF who presented to the [facility] ED on 10/26/21 with abdominal pain. Workup in the ED showed a WBC of [address] a/p concerning for acute appendicitis. The patient was tender to palpation in the RLQ. Patient made NPO with IVF, started on pre-op abx, and booked for the OR. On 5/ the patient went to the OR with Dr. Call for a laparoscopic appendectomy. The patient tolerated the procedure well, see operative report for full details. Post operatively the patient's diet was advanced, pain managed on prn meds, and incisions clean/dry/intact. On POD#1 WBC 12. Patient feeling well. She was deemed stable for discharge to home with plans to follow up in clinic with Dr. Call in 1-2 weeks. Total Time Total Time Spent Total Time Spent (In Minutes): 10 Discharge Plan Discharge Items Patient Disposition: Home - Self-Care Reason For Visit: APPY Discharge Diagnosis: laparoscopic appendectomy Condition on Discharge: Good Activity: Per Instructions section Lifting: No more than 10 pounds Bathing Comment: may shower; no soaking in tubs/pools Exercise/Sports: Wait until after follow-up appointment Driving/Machine Use: no driving while taking narcotics for pain Non-emergency contact: Surgeon Call non-emergency contact if: you have any medication questions, your symptoms worsen, your pain is not controlled, your pain is worsening, your pain is concerning for you, you have a fever, your temperature is above 101.5, your wound has increased redness, your wound has increased drainage and your wound pain has increased Follow-up/Referrals: Colby Call, RUSS ARELLANO [Physician] - 11/08/21 10:30 am (Please call to schedule follow up in clinic within 2 weeks) PCP,NO [Primary Care Provider] - Diet: Regular Addtl Attending Provider Instructions: -May use ibuprofen for pain as tolerated. -If you do not require the narcotic Percocet for pain you may purchase plain Tylenol over the counter. Do not take Percocet and Tylenol concurrently as they both contain Acetaminophen. You should not exceed >3grams of Acetaminophen within a 24 hour time period. Pending Studies at Discharge: Yes Studies:: surgical pathology Stand-Alone Forms: [facility] [employer], Work/School Release, Virtual Emergency Department, Important Visit Information Medications and DC Order Prescriptions: New oxycodone-acetaminophen [Percocet] 5-325 mg tablet 1 - 2 tab PO .q4-6h PRN (Reason: pain, for initial therapy, max 6 tabs per day) Qty: 10 RF: 0 Continued loratadine [Allergy Relief (loratadine)] 10 mg Tablet,Disintegrating 10 mg PO DAILY PRN (Reason: Congestion) RF: 0 Discharge Orders: Discharge Order (Routine); Ordered 10/27/21 Ordered By: Margarito Bustos/Other Patient Handouts: Appendectomy Admission Data Admit Date/Time: 10/26/21 19:18 Attending Provider: Colby Call Admit Provider: Colby Call Primary Care Provider: PCP,NO Other Interventions: Discharge Summary Assessment (RN) Last Done: 10/27/21 10:23 Coding Level of Care Code D/C DAY MANAGEMENT <30 MINS Diagnoses Acute appendicitis K35.30 Acute appendicitis type: with localized peritonitis Appendicitis abscess presence: without abscess Appendicitis gangrene presence: without gangrene Appendicitis perforation presence: without perforation
== END 2021-10-27 11:00 | disposition home or self-care (01) ==
LOC: ED 09:30 → ASU 15:40 → 3N 15:40
DX: K35.80 Unspecified acute appendicitis; Z91.048 Other nonmedicinal substance allergy status